=== PATIENT | female | born 1995 | race Caucasian/White ===

== ENCOUNTER 2017-08-14 09:25 | Emergency (ER) | payer MEDICAID ==
[2017-08-14 09:31] VITALS: BMI 25.2
--- NOTE | 2017-08-14 10:33 | ED PDOC ---
HPI: Female Pain Time Seen by Provider: 08/14/17 10:00 Chief Complaint (Nursing): Abdominal Pain Chief Complaint (Provider): Pelvic pain, vaginal bleeding and diarrhea History Per: Patient History/Exam Limitations: no limitations Onset/Duration Of Symptoms: Days (x1) Current Symptoms Are (Timing): Still Present Associated Symptoms: Diarrhea (watery, non bloody), Back Pain (left lower). denies: Fever, Chills, Nausea, Vomiting, Urinary Symptoms (dysuria) Additional Complaint(s): Felicity Green is a 22 year old female, with no significant past medical history, who presents to the emergency department complaining of diarrhea onset today and vaginal bleeding associated with left sided pelvic pain that radiates to left lower back onset since yesterday. Patient states she had vaginal bleeding yesterday and was seen at [facility] ER. She had an ultrasound done, she was told she had a threatened and was discharge. Patient states she woke up today and had x3 episodes of diarrhea. She noticed blood in stool but states she also had some vaginal bleeding and believes blood might be from that. Patient did not take any medication for pain. She denies any fever, chills , nausea, vomit, vaginal discharge, dysuria or other medical complaints. She is . PMD: Hu Witt Abnormal Vaginal Bleeding: Yes : 1 Para: 0 Past Medical History Reviewed: Historical Data, Nursing Documentation, Vital Signs Vital Signs: Last Vital Signs Temp 98.8 F 08/14/17 09:31 Pulse 86 08/14/17 09:31 Resp 16 08/14/17 09:31 BP 109/68 08/14/17 09:31 Pulse Ox 97 08/14/17 09:31 - Medical History PMH: HTN - Surgical History Surgical History: Tonsillectomy - Family History Family History: States: Unknown Family Hx - Social History Current smoker - smoking cessation education provided: No Alcohol: None Drugs: Denies - Immunization History Hx Tetanus Toxoid Vaccination: No Hx Influenza Vaccination: No Hx Pneumococcal Vaccination: No - Home Medications Home Medications: Ambulatory Orders Medication Instructions Recorded Ibuprofen [Motrin] 600 mg PO TID #30 tab 09/09/16 Miconazole 2% Vaginal [Monistat 7 7 applic VG HS #1 tube 09/09/16 Vaginal Cream] - Allergies Allergies/Adverse Reactions: Allergies Allergy/AdvReac Type Severity Reaction Status Date / Time No Known Allergies Allergy Verified 06/18/15 20:49 Review of Systems ROS Statement: Except As Marked, All Systems Reviewed And Found Negative Constitutional: Negative for: Fever, Chills Gastrointestinal: Positive for: Diarrhea. Negative for: Nausea, Vomiting Genitourinary Female: Positive for: Vaginal Bleeding, Pelvic Pain (left sided). Negative for: Dysuria, Vaginal Discharge Musculoskeletal: Positive for: Back Pain (left lower) Physical Exam - Reviewed Nursing Documentation Reviewed: Yes Vital Signs Reviewed: Yes - Physical Exam Appears: Positive for: Non-toxic, No Acute Distress Head Exam: Positive for: ATRAUMATIC, NORMOCEPHALIC Skin: Positive for: Normal Color, Warm, Dry Eye Exam: Positive for: Normal appearance, EOMI, PERRL Neck: Positive for: Painless ROM, Supple Cardiovascular/Chest: Positive for: Regular Rate, Rhythm. Negative for: Murmur Respiratory: Positive for: Normal Breath Sounds. Negative for: Respiratory Distress Gastrointestinal/Abdominal: Positive for: Tenderness (mild LLQ) Back: Positive for: Other (left lower back tenderness to palpation). Negative for: L CVA Tenderness, R CVA Tenderness Extremity: Positive for: Normal ROM (upper and lower extremities). Negative for : Deformity, Swelling Neurologic/Psych: Positive for: Alert, Oriented. Negative for: Motor/Sensory Deficits - Laboratory Results Result Diagrams: 08/14/17 10:30 08/14/17 10:30 - ECG O2 Sat by Pulse Oximetry: 97 (RA) Pulse Ox Interpretation: Normal Medical Decision Making Medical Decision Making: Time: 10:00 Initial Impression: left pelvic pain, vaginal bleeding in a female associated with diarrhea. Differential includes but not limited to threatened , r/o ectopic , ovarian cysts and associated infectious diarrhea vs colitis Initial Plan: --Type and screen --BMP --Beta-HCG, Quantitative --Urine dipstick --Urine --CBC w/ differential --OB , Limited [US] --Reevaluation 12:42 US FINDINGS: UTERUS: Measures 11.1 x 6.9 x 6 .6cm. The uterus is . No fibroid or other mass lesion seen. An intrauterine gestational sac is present corresponding to a 7 week 0 day gestation. The combined biometric parameters correspond to an ultrasound intrauterine gestation of 8 weeks 2 days 0 weeks 4 day gestation. Estimated date of delivery per ultrasound is 03/24/2018. 3.5 mm Yolk sac is present. 2.6 cm [place]-rump length embryonic pole with cardiac activity at 177 beats per minute is present. No subchorionic hemorrhage noted Cervix There is sliver like possible fluid and/or and/or trace sliver like liquified mucus in the upper endocervical canal. Consider follow-up evaluation findings are nonspecific - clinical history however is noted. Tiny vessel here is also noted. Is also likely some tiny incidental nabothian cysts here. RIGHT OVARY: Measures 2.8 x 2.2 x 1.7 cm. No solid mass. Normal flow. LEFT OVARY: Measures 4.3 x 3.7 x 3 point cm. No solid mass. Normal flow. A minimally complex cyst measuring 2.7 x 2.3 x 2.2 cm in size is noted. FREE FLUID: There is free fluid present. OTHER FINDINGS: IMPRESSION: Single intrauterine gestation with normal cardiac activity with a gestational age by ultrasound 8 weeks 2 days 0 weeks 4 days with an estimated date of delivery of 03/24/2018. This contrasts slightly with the clinical dates of 8 weeks 4 days estimated date of delivery 03/22/2018. Nonspecific trace sliver like possible fluid and/ortrace sliver like liquified mucus upper cervical canal. Internal cervical os does not appear widened. Other findings as noted above. Clinical follow-up recommended Minimally complex cyst left ovary measuring up to 2.7 cm. Corpus luteal cyst compatible with this Scribe Attestation: Documented by Yong Akbar acting as a scribe for Param Hamlin MD. MD Gamble Attestation: All medical record entries made by the Scribe were at my direction and personally dictated by me. I have reviewed the chart and agree that the record accurately reflects my personal performance of the history, physical exam, medical decision making, and the department course for this patient. I have also personally directed, reviewed, and agree with the discharge instructions and disposition. Disposition - Clinical Impression Clinical Impression: Threatened , Diarrhea - Patient ED Disposition Is Patient to be Admitted: No Doctor Will See Patient In The: Office Counseled Patient/Family Regarding: Studies Performed, Diagnosis, Need For Followup - Disposition Referrals: Hu Witt MD [Family Provider] - Disposition: Routine/Home Disposition Time: 13:31 Condition: GOOD Additional Instructions: Take tylenol for pain. Take vitamins as instructed. Follow up with your PCP in 2 -3 days. You have live of 8 weeks. You have left ovarian cyst. Instructions: Threatened Miscarriage, Diarrhea in Adolescents and Adults
[2017-08-14 10:52] LABS: BASO % 0.2 % (0.0-2.0); EOS % 0.4 % (0.0-4.0); HEMOGLOBIN 14.2 g/dL (12.0-16.0); LYMPH # 0.9 K/uL (1.0-4.3); LYMPH % 9.1 % (20.0-40.0); MEAN CELL VOLUME 88.1 fl (81.0-99.0); MEAN CORPUSCULAR HEMOGLOBIN 29.5 pg (27.0-31.0); MEAN CORPUSCULAR HGB CONC 33.5 g/dL (33.0-37.0); MEAN PLATELET VOLUME 8.4 fl (7.2-11.7); MONO # 0.8 K/uL (0.0-0.8); NEUT # 7.8 K/uL (1.8-7.0); NEUT % 82.3 % (50.0-75.0); PLATELET COUNT 258 K/uL (130-400); RBC 4.83 Mil/uL (3.80-5.20); RED CELL DISTRIBUTION WIDTH 13.2 % (11.5-14.5); WHITE BLOOD COUNT 9.4 K/uL (4.8-10.8)
[2017-08-14 11:18] LABS: BLOOD UREA NITROGEN 6 mg/dl (7-17); GFR AFRICAN-AMERICAN > 60; GFR NON-AFRICAN AMERICAN > 60
[2017-08-14 11:56] LABS: LYMPHOCYTE 8 % (20-50); MONOCYTE 5 % (0-10); NEUTROPHIL 87 % (42-75); TOTAL CELLS COUNTED 100
[2017-08-14 11:57] LABS: PLATELET ESTIMATE NORMAL (NORMAL)
--- NOTE | 2017-08-14 12:43 | US ---
HISTORY: 22-year-old female with left pelvic pain -vaginal spotting 2 days ago. LMP 06/15/2017. Estimated date of delivery by LMP 03/22/2018. Estimated gestational age by LMP 8 weeks 4 days. COMPARISON: None TECHNIQUE: Transvaginal technique utilized. FINDINGS: UTERUS: Measures 11.1 x 6.9 x 6 .6cm. The uterus is . No fibroid or other mass lesion seen. An intrauterine gestational sac is present corresponding to a 7 week 0 day gestation. The combined biometric parameters correspond to an ultrasound intrauterine gestation of 8 weeks 2 days 0 weeks 4 day gestation. Estimated date of delivery per ultrasound is 03/24/2018. 3.5 mm Yolk sac is present. 2.6 cm [place]-rump length embryonic pole with cardiac activity at 177 beats per minute is present. No subchorionic hemorrhage noted Cervix There is sliver like possible fluid and/or and/or trace sliver like liquified mucus in the upper endocervical canal. Consider follow-up evaluation findings are nonspecific - clinical history however is noted. Tiny vessel here is also noted. Is also likely some tiny incidental nabothian cysts here. RIGHT OVARY: Measures 2.8 x 2.2 x 1.7 cm. No solid mass. Normal flow. LEFT OVARY: Measures 4.3 x 3.7 x 3 point cm. No solid mass. Normal flow. A minimally complex cyst measuring 2.7 x 2.3 x 2.2 cm in size is noted. FREE FLUID: There is free fluid present. OTHER FINDINGS: IMPRESSION: Single intrauterine gestation with normal cardiac activity with a gestational age by ultrasound 8 weeks 2 days 0 weeks 4 days with an estimated date of delivery of 03/24/2018. This contrasts slightly with the clinical dates of 8 weeks 4 days estimated date of delivery 03/22/2018. Nonspecific trace sliver like possible fluid and/ortrace sliver like liquified mucus upper cervical canal. Internal cervical os does not appear widened. Other findings as noted above. Clinical follow-up recommended Minimally complex cyst left ovary measuring up to 2.7 cm. Corpus luteal cyst compatible with this
[2017-08-14] MEDS ORDERED: Potassium Chloride 20 mEq ER Tab PO ONE ×2 (13:29→14:05)
[2017-08-14 14:14] VITALS: BP 122/67; PULSE 78; RESP 18; TEMP 97.8; O2SAT 100
== END 2017-08-14 14:13 | disposition home or self-care (01) ==
LOC: H.ER 09:25
DX: O20.0 Threatened abortion (principal); R19.7 Diarrhea, unspecified; O26.891 Other specified pregnancy related conditions, first trimester; I10 Essential (primary) hypertension; Z3A.08 8 weeks gestation of pregnancy

== ENCOUNTER 2017-12-02 02:31 | Emergency (ER) | payer OTHER ==
[2017-12-02 03:16] VITALS: BMI 29.0
[2017-12-02] MEDS ORDERED: AMPicillin 2 GM in Sodium Chloride 0.9% 100 ML IV ONE (03:18)
[2017-12-02] MEDS ORDERED: Magnesium Sulfate 4 gm/100 ml 4 GM/100 ML BAG IV ONE (03:18)
[2017-12-02] MEDS ORDERED: Betamethasone Soluspan 30 mg/5mL Inj Susp IM ONE (03:18)
[2017-12-02] MEDS ORDERED: Lactated Ringer's 1,000 ML IV ONE (03:20)
[2017-12-02] MEDS ORDERED: Azithromycin 500 MG in Sodium Chloride 0.9% 250 ML IVPB STA (03:52)
--- NOTE | 2017-12-02 03:58 | OBHP ---
Datetime: 12/02/2017 03:47 IP Adm Impression: , intrauterine IP Admit Plan: Observation/Evaluation Admit Comment, IP Provider: Patient is a @ 24.6 wks presenting with abdominal pain. Patient rep orted also after placing her vaginal progesterone tonight she saw blood tinged discharge. + FM and prather s pain that started suprapubic, radiating to back. No other signs/symptoms. Patient had a rescue cerc janine at 22 wks, was 3cm dilated at the time. Patient on exam looks to be grossly ruptured. Cerclage a ppeared to be intact. Pooling+, nitrazine+. VSS, no fever. FHR= 150 mod ottoniel, +accels, no decels. mild abdominal discomfort diffusely. no contractions on monitor. Cephalic presentation. Dr. Gardiner prima y OB and Dr. Palacio notified. Patient had IV started, Latency antibiotics started - Ampicillin/Azit hromycin, Magnessium sulfate for tocolysis started, Betamethasone 12mg IM. Patient to transfered to [facility] Type - PN: Adequate Extremities - PN: Normal Abdomen - PN: Normal Back - PN: Normal Breast - PN: Normal Lungs - PN: Normal Heart - PN: Normal Thyroid - PN: Normal Neurologic - PN: Normal HEENT - PN: Normal General - PN: Normal Presentation-Admit: Vertex FHR - Baseline A Provider: 150 Amniotic Fluid Color, Provider: Clear Membranes, Provider: Ruptured Contraction Comments Provider: none Pool Provider: Positive Nitrazine Provider: Positive EGA AdmitDate IP: 24.6 Vital Signs Provider: Reviewed; Within Normal Limits IP Chief Complaint: Suspected ruptured membranes NICHD Variability Prov Fetus A: Moderate 6-25bpm NICHD Accel Fetus A IP Provider: [id number] NICHD Decel Fetus A IP Provider: None Dilatation, Provider: closed Genitourinary Exam: Normal DTRs - PN: Normal
[2017-12-02 04:01] LABS: BASO % 0.2 % (0.0-2.0); EOS # 0.1 K/uL (0.0-0.7); HEMOGLOBIN 12.7 g/dL (12.0-16.0); LYMPH # 1.9 K/uL (1.0-4.3); LYMPH % 13.9 % (20.0-40.0); MEAN CELL VOLUME 87.2 fl (81.0-99.0); MEAN CORPUSCULAR HEMOGLOBIN 29.5 pg (27.0-31.0); MEAN CORPUSCULAR HGB CONC 33.8 g/dL (33.0-37.0); MEAN PLATELET VOLUME 8.9 fl (7.2-11.7); MONO # 1.2 K/uL (0.0-0.8); MONO % 8.3 % (0.0-10.0); NEUT # 10.6 K/uL (1.8-7.0); NEUT % 76.6 % (50.0-75.0); NRBC % 0.1 % (0.0-0.0); RBC 4.31 Mil/uL (3.80-5.20); WHITE BLOOD COUNT 13.9 K/uL (4.8-10.8)
[2017-12-02 04:10] LABS: ALBUMIN 3.6 g/dL (3.5-5.0); ALT/SGPT 23 U/L (9-52); AST/SGOT 22 U/L (14-36); BLOOD UREA NITROGEN 6 mg/dl (7-17); CALCIUM 9.7 mg/dL (8.4-10.2); GFR NON-AFRICAN AMERICAN > 60
[2017-12-02] MEDS ORDERED: Lactated Ringer's 1,000 ML IV SCH (04:15)
[2017-12-02] MEDS ORDERED: Magnesium Sul 40GM/1L SW 40 GM/1,000 ML ML IV ONE ×2 (04:16→04:28)
--- NOTE | 2017-12-02 07:41 | OBDCSUM ---
Datetime: 12/02/2017 07:40 Discharged to, Provider: Other Disch Instr Diet: Regular Discharge Instructions, Provider: Specific instructions as noted Discharge Diagnosis, Provider: PROM - Indicate X Hours Discharge Time: 12/02/2017 07:40 Disch Referrals: None Contraception discussed, Prov: No Discharge Comment, Provider: Transfer to [facility] under the care of Dr. Palacio
[2017-12-02 13:51] VITALS: BP 111/56; PULSE 98; RESP 18; TEMP 98; O2SAT 99
== END 2017-12-02 07:48 | disposition home or self-care (01) ==
LOC: H.EROB2 02:31
DX: O26.852 Spotting complicating pregnancy, second trimester (principal); O26.92 Pregnancy related conditions, unspecified, second trimester; R10.2 Pelvic and perineal pain; Z3A.24 24 weeks gestation of pregnancy; O26.872 Cervical shortening, second trimester
CPT/HCPCS: 80053; 85025; 86850; 86900; 96374; 96375; 96376; 99283; J0290; J0456; J0702; J3475; J7120